=== PATIENT | female | born 1930 | race Caucasian/White ===

== ENCOUNTER 2020-11-20 12:37 | Inpatient (IN) | payer OTHER ==
[2020-11-20] MEDS ORDERED: LACTATED RINGERS SOLUTION 1000 ML INFUS.BAG IV ONE (13:34)
[2020-11-20 13:57] LABS: ACTIVATED PTT 28.1 SECONDS (25.2-36.5)
[2020-11-20 14:01] LABS: ALBUMIN 2.9 g/dl (3.4-5.0); ALK PHOS 164 U/L (45-117); ANION GAP 8 MMOL/L (8-16); BASO % 0.2 % (0-2.0); BILIRUBIN,TOTAL 0.6 mg/dl (0.2-1); CALCIUM 8.4 mg/dl (8.5-10); CHLORIDE 97 mmol/L (98-107); CO2 27 mmol/L (21-32); CREATININE 0.7 mg/dl (0.55-1.3); EOS % 0.3 % (0-4.5); GLUCOSE,RANDOM 156 mg/dl (74-106); HEMATOCRIT 32.6 % (32.4-45.2); HEMOGLOBIN 11.2 GM/dl (10.7-15.3); INR 1.12 (0.82-1.09); LYMPH % 7.7 % (8-40); MCH 33.7 pg (25.7-33.7); MCHC 34.3 g/dl (32.0-36.0); MEAN CELL VOLUME 98.2 fl (80-96); MEAN PLT VOLUME 8.2 fl (7.5-11.1); MONO % 7.6 % (3.8-10.2); NEUT % 84.2 % (42.8-82.8); PLATELET COUNT 334 10^3/uL (134-434); PROTHROMBIN TIME (PATIENT) 12.4 SEC (10.2-13.0); RBC 3.32 M/mm3 (3.60-5.2); RDW 13.6 % (11.6-15.6); SGOT/AST 23 U/L (15-37); SGPT/ALT 21 U/L (13-61); SODIUM 132 mmol/L (136-145); TOT PROT 6.3 g/dl (6.4-8.2); WHITE BLOOD COUNT 10.9 K/mm3 (4.0-10.8)
[2020-11-20] MEDS ORDERED: VANCOMYCIN 1 GM in D5W (PRE-DOCKED) 1,000 MG/250 ML IVPB ONE (14:45)
[2020-11-20] MEDS ORDERED: PIPERACILLIN/TAZOB 4.5 GM 4.5 GM in DEXTROSE 5%-WATER 100 ML IVPB ONE (14:45)
[2020-11-20] MEDS ORDERED: PIPERACILLIN/TAZOBACTAM 4.5 GM VIAL IVPB ONE (15:01)
[2020-11-20] MEDS ORDERED: VANCOMYCIN 1,000 MG VIAL (RESTRICTED TO ID ONLY) ONE (15:01)
[2020-11-21] MEDS ORDERED: DEXTROSE 5%-WATER 100 ML IVPB ONE ×2 (00:42→08:37)
[2020-11-21] MEDS ORDERED: PIPERACILLIN/TAZOBACTAM 4.5 GM VIAL IVPB ONE ×2 (00:43→08:38)
[2020-11-21] MEDS ORDERED: PIPERACILLIN/TAZOB 4.5 GM 4.5 GM in DEXTROSE 5%-WATER 100 ML IVPB SCH ×3 (00:45→08:00)
[2020-11-21] MEDS ORDERED: MECLIZINE HCL 25 MG TABLET (FP) PO PRN (01:37)
[2020-11-21] MEDS ORDERED: VANCOMYCIN 1 GM in D5W (PRE-DOCKED) 1,000 MG/250 ML IVPB SCH (04:00)
[2020-11-21 07:50] LABS: BASO % 0.1 % (0-2.0); EOS % 0.8 % (0-4.5); HEMATOCRIT 28.9 % (32.4-45.2); HEMOGLOBIN 10.4 GM/dl (10.7-15.3); LYMPH % 8.8 % (8-40); MCH 35.7 pg (25.7-33.7); MCHC 36.1 g/dl (32.0-36.0); MEAN CELL VOLUME 98.9 fl (80-96); MEAN PLT VOLUME 8.2 fl (7.5-11.1); MONO % 7.6 % (3.8-10.2); NEUT % 82.7 % (42.8-82.8); PLATELET COUNT 344 10^3/uL (134-434); RBC 2.92 M/mm3 (3.60-5.2); RDW 13.8 % (11.6-15.6); WHITE BLOOD COUNT 8.6 K/mm3 (4.0-10.8)
[2020-11-21 07:53] LABS: CALCIUM 8.2 mg/dl (8.5-10); CREATININE 0.7 mg/dl (0.55-1.3)
[2020-11-21] MEDS ORDERED: PT OWN MED DRAWER 7, Y5N ONE ×2 (09:23→21:52)
[2020-11-21] MEDS: VITAMIN B COMPLEX W/C COMBO TABLET (FP) PO SCH (09:25)
[2020-11-21] MEDS: CHOLECALCIFEROL (VIT D3) 400 UNIT (10 MCG) TABLET PO SCH ×2 (09:25→22:23)
[2020-11-21] MEDS: NADOLOL 20 MG TABLET (FP) PO SCH (09:25)
[2020-11-21] MEDS ORDERED: amLODIPine BESYLATE 10 MG TABLET (FP) PO SCH (10:00)
[2020-11-21] MEDS ORDERED: PATIENT'S OWN MEDICATION (NON-FORMULARY) (Alendronate Sodium [Fosamax] 70 MG Tablet) PO SCH (10:00)
[2020-11-21] MEDS: ALBUTEROL SO4 0.083% IH SOL 2.5 MG/3 ML VIAL.NEB. NEB SCH ×3 (13:13→19:57)
[2020-11-21] MEDS: ENOXAPARIN NA (PORCINE) 40 MG/0.4 ML DISP.SYRIN SQ SCH (13:14)
[2020-11-21] MEDS: ACETAMINOPHEN 325 MG TABLET (FP) PO PRN ×2 (13:14→21:44)
[2020-11-21] MEDS ORDERED: VANCOMYCIN 750 MG in DEXTROSE 5%-WATER - 250 ML IVPB SCH (16:00)
[2020-11-21] MEDS: ATORVASTATIN CA 10 MG TABLET (FP) PO SCH (21:44)
[2020-11-21] MEDS: DONEPEZIL HCL 10 MG TABLET (FP) PO SCH (21:44)
[2020-11-21] MEDS: MAGNESIUM OXIDE 400 MG TABLET (FP) PO SCH (21:44)
[2020-11-21] MEDS ORDERED: SODIUM CHLORIDE 500 ML IV STA (23:33)
[2020-11-22 01:24] LABS: MAGNESIUM 1.8 mg/dL (1.8-2.4)
[2020-11-22] MEDS ORDERED: VANCOMYCIN 1 GM in D5W (PRE-DOCKED) 1,000 MG/250 ML IVPB STA (05:55)
[2020-11-22] MEDS ORDERED: PIPERACILLIN/TAZOB 3.375 GM 3.375 GM in DEXTROSE 5%-WATER - 50 ML IVPB SCH (06:00)
[2020-11-22] MEDS ORDERED: PIPERACILLIN/TAZOB 3.375 GM 3.375 GM in DEXTROSE 5%-WATER - 50 ML IVPB ONE (08:15)
[2020-11-22] MEDS ORDERED: dilTIAZem HCL 50 MG/10 ML - 10 ML VIAL ONE (09:09)
[2020-11-22] MEDS ORDERED: dilTIAZem HCL 50 MG/10 ML - 10 ML VIAL IVPUSH ONE (09:15)
[2020-11-22] MEDS ORDERED: DEXTROSE 5%-WATER - 50 ML IVPB ONE ×2 (09:22→17:16)
[2020-11-22] MEDS ORDERED: PIPERACILLIN/TAZOBACTAM 3.375 GM VIAL IVPB ONE ×2 (09:22→17:16)
[2020-11-22] MEDS: NADOLOL 20 MG TABLET (FP) PO SCH (09:31)
[2020-11-22] MEDS: ALBUTEROL SO4 0.083% IH SOL 2.5 MG/3 ML VIAL.NEB. NEB SCH ×4 (09:31→20:20)
[2020-11-22] MEDS: ENOXAPARIN NA (PORCINE) 40 MG/0.4 ML DISP.SYRIN SQ SCH (09:44)
[2020-11-22] MEDS ORDERED: amLODIPine BESYLATE 10 MG TABLET (FP) PO SCH (10:00)
[2020-11-22] MEDS: CHOLECALCIFEROL (VIT D3) 400 UNIT (10 MCG) TABLET PO SCH ×2 (10:07→22:30)
[2020-11-22] MEDS: VITAMIN B COMPLEX W/C COMBO TABLET (FP) PO SCH (10:07)
[2020-11-22 10:57] LABS: HEMATOCRIT 30.9 % (32.4-45.2); HEMOGLOBIN 10.7 GM/dl (10.7-15.3); MCH 33.9 pg (25.7-33.7); MCHC 34.6 g/dl (32.0-36.0); MEAN CELL VOLUME 98.1 fl (80-96); MEAN PLT VOLUME 8.6 fl (7.5-11.1); PLATELET COUNT 355 10^3/uL (134-434); RBC 3.15 M/mm3 (3.60-5.2); RDW 13.8 % (11.6-15.6)
[2020-11-22 11:00] LABS: ADD RBC MORPHOLOGY YES
[2020-11-22 11:43] LABS: ANISOCYTOSIS 1+; PLATELET ESTIMATE ADEQUATE
[2020-11-22] MEDS: methylPREDNISolone NA SUCC 40 MG/1 ML VIAL IVPB SCH ×2 (15:00→22:30)
[2020-11-22 15:16] LABS: CHLORIDE 97 mmol/L (98-107); SODIUM 134 mmol/L (136-145)
[2020-11-22 15:18] LABS: CALCIUM 8.1 mg/dL (8.5-10.1)
[2020-11-22 15:19] LABS: ALBUMIN 2.3 g/dl (3.4-5.0); ANION GAP 9 MMOL/L (8-16); BLOOD UREA NITROGEN 11.6 mg/dL (7-18); CO2 27 mmol/L (21-32); GLUCOSE,RANDOM 95 mg/dL (74-106); MAGNESIUM 1.8 mg/dL (1.8-2.4)
[2020-11-22 15:22] LABS: CREATININE 0.6 mg/dL (0.55-1.3); SGOT/AST 19 U/L (15-37); SGPT/ALT 21 U/L (13-61)
[2020-11-22 15:23] LABS: BILIRUBIN,TOTAL 0.6 mg/dL (0.2-1); TOT PROT 5.4 g/dl (6.4-8.2)
[2020-11-22 15:25] LABS: ALK PHOS 175 U/L (45-117)
[2020-11-22] MEDS: ACETYLCYSTEINE 20% 200MG/ML 4 ML VIAL *FOR ORAL / INH USE ONLY NEB SCH ×2 (15:45→20:20)
[2020-11-22] MEDS ORDERED: POLYETHYLENE GLYCOL 3350 119 GM BTL PO SCH (17:03)
[2020-11-22] MEDS: PIPERACILLIN/TAZOB 3.375 GM 3.375 GM in DEXTROSE 5%-WATER - 50 ML IVPB SCH (17:23)
[2020-11-22] MEDS: MAGNESIUM OXIDE 400 MG TABLET (FP) PO SCH (22:30)
[2020-11-22] MEDS: SENNOSIDES 8.6MG TABLET (FP) PO SCH (22:30)
[2020-11-22] MEDS: MUPIROCIN 2% TOPICAL OINTMENT FOR DECOLONIZATION NS SCH (22:30)
[2020-11-22] MEDS: DONEPEZIL HCL 10 MG TABLET (FP) PO SCH (22:30)
[2020-11-22] MEDS: ATORVASTATIN CA 10 MG TABLET (FP) PO SCH (22:30)
[2020-11-22] MEDS: MELATONIN 5 MG TABLETS PO SCH (22:30)
[2020-11-22] MEDS: CHLORHEXIDINE GLUCONATE 4% CLEANSER FOR DECOLONIZATION TP SCH (22:30)
[2020-11-23] MEDS ORDERED: DEXTROSE 5%-WATER - 50 ML IVPB ONE ×3 (01:49→17:16)
[2020-11-23] MEDS ORDERED: PIPERACILLIN/TAZOBACTAM 3.375 GM VIAL IVPB ONE ×3 (01:49→17:16)
[2020-11-23] MEDS: PIPERACILLIN/TAZOB 3.375 GM 3.375 GM in DEXTROSE 5%-WATER - 50 ML IVPB SCH ×3 (02:36→17:58)
[2020-11-23 06:52] LABS: HEMATOCRIT 32.5 % (32.4-45.2); HEMOGLOBIN 11.4 GM/dL (10.7-15.3); LYMPH % 6.7 % (8-40); MCH 33.9 pg (25.7-33.7); MCHC 35.1 g/dl (32.0-36.0); MEAN CELL VOLUME 96.7 fl (80-96); MONO % 4.3 % (3.8-10.2); NEUT % 88.9 % (42.8-82.8); PLATELET COUNT 445 10^3/uL (134-434); RBC 3.36 M/mm3 (3.60-5.2)
[2020-11-23 06:53] LABS: BASO % 0.1 % (0-2.0)
[2020-11-23 07:12] LABS: BLOOD UREA NITROGEN 19.5 mg/dL (7-18); CALCIUM 8.7 mg/dL (8.5-10.1)
[2020-11-23 07:13] LABS: ALBUMIN 2.5 g/dl (3.4-5.0); MAGNESIUM 2.2 mg/dL (1.8-2.4)
[2020-11-23 07:15] LABS: CREATININE 0.7 mg/dL (0.55-1.3)
[2020-11-23 07:16] LABS: PHOSPHOROUS 3.6 mg/dL (2.5-4.9)
[2020-11-23 07:17] LABS: BILIRUBIN,TOTAL 0.4 mg/dL (0.2-1); TOT PROT 6.3 g/dl (6.4-8.2)
[2020-11-23] MEDS: VITAMIN B COMPLEX W/C COMBO TABLET (FP) PO SCH (09:13)
[2020-11-23] MEDS: ENOXAPARIN NA (PORCINE) 40 MG/0.4 ML DISP.SYRIN SQ SCH (09:13)
[2020-11-23] MEDS: methylPREDNISolone NA SUCC 40 MG/1 ML VIAL IVPB SCH ×2 (09:14→22:18)
[2020-11-23] MEDS: POLYETHYLENE GLYCOL (HEALTHYLAX) 3350 17 GM PACKET PO SCH (09:14)
[2020-11-23] MEDS: ACETYLCYSTEINE 20% 200MG/ML 4 ML VIAL *FOR ORAL / INH USE ONLY NEB SCH ×4 (09:40→20:41)
[2020-11-23] MEDS: ALBUTEROL SO4 0.083% IH SOL 2.5 MG/3 ML VIAL.NEB. NEB SCH ×4 (09:40→20:42)
[2020-11-23] MEDS ORDERED: PT OWN MED DRAWER 7, Y5N ONE ×2 (09:47→22:01)
[2020-11-23] MEDS: NADOLOL 20 MG TABLET (FP) PO SCH (09:48)
[2020-11-23] MEDS: CHOLECALCIFEROL (VIT D3) 400 UNIT (10 MCG) TABLET PO SCH ×2 (09:48→22:17)
[2020-11-23] MEDS: metoPROLOL SUCCINATE 25 MG TAB.SR.24H (FP) PO SCH (09:53)
[2020-11-23] MEDS: MUPIROCIN 2% TOPICAL OINTMENT FOR DECOLONIZATION NS SCH ×2 (09:56→22:18)
[2020-11-23] MEDS: METOPROLOL TARTRATE 5 MG/5 ML VIAL IVPUSH PRN (20:28)
[2020-11-23] MEDS: DONEPEZIL HCL 10 MG TABLET (FP) PO SCH (22:17)
[2020-11-23] MEDS: ACETAMINOPHEN 325 MG TABLET (FP) PO PRN (22:18)
[2020-11-23] MEDS: CHLORHEXIDINE GLUCONATE 4% CLEANSER FOR DECOLONIZATION TP SCH (22:18)
[2020-11-23] MEDS: SENNOSIDES 8.6MG TABLET (FP) PO SCH (22:18)
[2020-11-23] MEDS: ATORVASTATIN CA 10 MG TABLET (FP) PO SCH (22:18)
[2020-11-23] MEDS: MAGNESIUM OXIDE 400 MG TABLET (FP) PO SCH (22:19)
[2020-11-23] MEDS: MELATONIN 5 MG TABLETS PO SCH (22:21)
[2020-11-24] MEDS ORDERED: DEXTROSE 5%-WATER - 50 ML IVPB ONE ×4 (01:15→21:06)
[2020-11-24] MEDS ORDERED: PIPERACILLIN/TAZOBACTAM 3.375 GM VIAL IVPB ONE ×4 (01:15→21:06)
[2020-11-24] MEDS: PIPERACILLIN/TAZOB 3.375 GM 3.375 GM in DEXTROSE 5%-WATER - 50 ML IVPB SCH ×3 (01:17→17:38)
[2020-11-24 07:38] LABS: BASO % 0.1 % (0-2.0); HEMATOCRIT 31.9 % (32.4-45.2); HEMOGLOBIN 11.3 GM/dL (10.7-15.3); LYMPH % 5.6 % (8-40); MCH 34.4 pg (25.7-33.7); MCHC 35.6 g/dl (32.0-36.0); MEAN CELL VOLUME 96.5 fl (80-96); MEAN PLT VOLUME 7.9 fl (7.5-11.1); MONO % 3.2 % (3.8-10.2); NEUT % 91.1 % (42.8-82.8); PLATELET COUNT 547 10^3/uL (134-434); WHITE BLOOD COUNT 10.2 K/mm3 (4.0-10.0)
[2020-11-24 07:47] LABS: CALCIUM 8.5 mg/dL (8.5-10.1)
[2020-11-24 07:48] LABS: ALBUMIN 2.5 g/dl (3.4-5.0)
[2020-11-24 07:49] LABS: MAGNESIUM 2.1 mg/dL (1.8-2.4)
[2020-11-24 07:51] LABS: CREATININE 0.8 mg/dL (0.55-1.3); PHOSPHOROUS 3.4 mg/dL (2.5-4.9)
[2020-11-24 07:53] LABS: BILIRUBIN,TOTAL 0.4 mg/dL (0.2-1); TOT PROT 6.2 g/dl (6.4-8.2)
[2020-11-24 08:44] LABS: ANISOCYTOSIS 1+; MACROCYTOSIS 1+; PLATELET ESTIMATE INCREASED
[2020-11-24] MEDS ORDERED: PT OWN MED DRAWER 7, Y5N ONE ×2 (09:06→21:23)
[2020-11-24] MEDS: CHOLECALCIFEROL (VIT D3) 400 UNIT (10 MCG) TABLET PO SCH ×2 (09:08→21:29)
[2020-11-24] MEDS: metoPROLOL SUCCINATE 25 MG TAB.SR.24H (FP) PO SCH ×2 (09:08→21:20)
[2020-11-24] MEDS: ENOXAPARIN NA (PORCINE) 40 MG/0.4 ML DISP.SYRIN SQ SCH (09:09)
[2020-11-24] MEDS: methylPREDNISolone NA SUCC 40 MG/1 ML VIAL IVPB SCH ×2 (09:10→21:41)
[2020-11-24] MEDS: ACETYLCYSTEINE 20% 200MG/ML 4 ML VIAL *FOR ORAL / INH USE ONLY NEB SCH ×4 (09:11→20:22)
[2020-11-24] MEDS: MUPIROCIN 2% TOPICAL OINTMENT FOR DECOLONIZATION NS SCH ×2 (09:12→21:19)
[2020-11-24] MEDS: ALBUTEROL SO4 0.083% IH SOL 2.5 MG/3 ML VIAL.NEB. NEB SCH ×4 (09:12→20:23)
[2020-11-24] MEDS: VITAMIN B COMPLEX W/C COMBO TABLET (FP) PO SCH (09:13)
[2020-11-24] MEDS: METOPROLOL TARTRATE 5 MG/5 ML VIAL IVPUSH PRN (09:59)
[2020-11-24] MEDS: POLYETHYLENE GLYCOL (HEALTHYLAX) 3350 17 GM PACKET PO SCH (15:28)
[2020-11-24] MEDS: DONEPEZIL HCL 10 MG TABLET (FP) PO SCH (21:19)
[2020-11-24] MEDS: MAGNESIUM OXIDE 400 MG TABLET (FP) PO SCH (21:19)
[2020-11-24] MEDS: MELATONIN 5 MG TABLETS PO SCH (21:19)
[2020-11-24] MEDS: CHLORHEXIDINE GLUCONATE 4% CLEANSER FOR DECOLONIZATION TP SCH (21:19)
[2020-11-24] MEDS: ATORVASTATIN CA 10 MG TABLET (FP) PO SCH (21:19)
[2020-11-24] MEDS: SENNOSIDES 8.6MG TABLET (FP) PO SCH (21:19)
[2020-11-24] MEDS ORDERED: metoPROLOL SUCCINATE 25 MG TAB.SR.24H (FP) PO SCH (22:00)
[2020-11-25] VITALS: BMI 21.6
[2020-11-25] MEDS: PIPERACILLIN/TAZOB 3.375 GM 3.375 GM in DEXTROSE 5%-WATER - 50 ML IVPB SCH ×3 (01:29→18:29)
[2020-11-25] MEDS: METOPROLOL TARTRATE 5 MG/5 ML VIAL IVPUSH PRN ×2 (03:18→15:45)
[2020-11-25 06:25] LABS: BASO % 0.1 % (0-2.0); HEMATOCRIT 33.1 % (32.4-45.2); HEMOGLOBIN 11.4 GM/dL (10.7-15.3); LYMPH % 5.7 % (8-40); MCH 33.9 pg (25.7-33.7); MCHC 34.6 g/dl (32.0-36.0); MEAN CELL VOLUME 97.8 fl (80-96); MEAN PLT VOLUME 7.8 fl (7.5-11.1); MONO % 4.3 % (3.8-10.2); NEUT % 89.9 % (42.8-82.8); PLATELET COUNT 546 10^3/uL (134-434); RBC 3.38 M/mm3 (3.60-5.2); RDW 14.5 % (11.6-15.6); WHITE BLOOD COUNT 10.6 K/mm3 (4.0-10.0)
[2020-11-25 06:35] LABS: ALBUMIN 2.7 g/dl (3.4-5.0); BLOOD UREA NITROGEN 27.8 mg/dL (7-18)
[2020-11-25 06:38] LABS: CREATININE 0.9 mg/dL (0.55-1.3)
[2020-11-25 06:40] LABS: BILIRUBIN,TOTAL 0.3 mg/dL (0.2-1); TOT PROT 6.4 g/dl (6.4-8.2)
[2020-11-25 08:23] LABS: CALCIUM 8.6 mg/dL (8.5-10.1)
[2020-11-25] MEDS ORDERED: DEXTROSE 5%-WATER - 50 ML IVPB ONE ×2 (08:26→18:28)
[2020-11-25] MEDS ORDERED: PIPERACILLIN/TAZOBACTAM 3.375 GM VIAL IVPB ONE ×2 (08:26→18:28)
[2020-11-25] MEDS: ALBUTEROL SO4 0.083% IH SOL 2.5 MG/3 ML VIAL.NEB. NEB SCH ×4 (08:48→20:55)
[2020-11-25] MEDS: ACETYLCYSTEINE 20% 200MG/ML 4 ML VIAL *FOR ORAL / INH USE ONLY NEB SCH ×4 (08:48→20:55)
[2020-11-25] MEDS ORDERED: PT OWN MED DRAWER 7, Y5N ONE (09:28)
[2020-11-25] MEDS: MUPIROCIN 2% TOPICAL OINTMENT FOR DECOLONIZATION NS SCH ×2 (09:30→22:12)
[2020-11-25] MEDS: ENOXAPARIN NA (PORCINE) 40 MG/0.4 ML DISP.SYRIN SQ SCH (09:31)
[2020-11-25] MEDS: metoPROLOL SUCCINATE 25 MG TAB.SR.24H (FP) PO SCH ×2 (09:31→22:11)
[2020-11-25] MEDS: methylPREDNISolone NA SUCC 40 MG/1 ML VIAL IVPB SCH (09:31)
[2020-11-25] MEDS: CHOLECALCIFEROL (VIT D3) 400 UNIT (10 MCG) TABLET PO SCH ×2 (09:32→22:11)
[2020-11-25] MEDS: VITAMIN B COMPLEX W/C COMBO TABLET (FP) PO SCH (09:32)
[2020-11-25] MEDS: POLYETHYLENE GLYCOL (HEALTHYLAX) 3350 17 GM PACKET PO SCH (09:53)
[2020-11-25] MEDS ORDERED: ACETAMINOPHEN 325 MG TABLET (FP) PO PRN (16:40)
[2020-11-25] MEDS ORDERED: MECLIZINE HCL 25 MG TABLET (FP) PO PRN (16:40)
[2020-11-25] MEDS: MAGNESIUM OXIDE 400 MG TABLET (FP) PO SCH (22:11)
[2020-11-25] MEDS: ATORVASTATIN CA 10 MG TABLET (FP) PO SCH (22:12)
[2020-11-25] MEDS: SENNOSIDES 8.6MG TABLET (FP) PO SCH (22:12)
[2020-11-25] MEDS: DONEPEZIL HCL 10 MG TABLET (FP) PO SCH (22:12)
[2020-11-25] MEDS: CHLORHEXIDINE GLUCONATE 4% CLEANSER FOR DECOLONIZATION TP SCH (22:13)
[2020-11-25] MEDS: MELATONIN 5 MG TABLETS PO SCH (22:13)
[2020-11-26] MEDS ORDERED: DEXTROSE 5%-WATER - 50 ML IVPB ONE ×3 (01:22→17:30)
[2020-11-26] MEDS ORDERED: PIPERACILLIN/TAZOBACTAM 3.375 GM VIAL IVPB ONE ×3 (01:22→17:30)
[2020-11-26] MEDS: PIPERACILLIN/TAZOB 3.375 GM 3.375 GM in DEXTROSE 5%-WATER - 50 ML IVPB SCH ×3 (01:27→17:38)
[2020-11-26] MEDS: ACETYLCYSTEINE 20% 200MG/ML 4 ML VIAL *FOR ORAL / INH USE ONLY NEB SCH ×4 (08:45→20:39)
[2020-11-26] MEDS: ALBUTEROL SO4 0.083% IH SOL 2.5 MG/3 ML VIAL.NEB. NEB SCH ×4 (08:45→20:39)
[2020-11-26] MEDS: ENOXAPARIN NA (PORCINE) 40 MG/0.4 ML DISP.SYRIN SQ SCH (09:54)
[2020-11-26] MEDS: metoPROLOL SUCCINATE 25 MG TAB.SR.24H (FP) PO SCH (09:54)
[2020-11-26] MEDS: CHOLECALCIFEROL (VIT D3) 400 UNIT (10 MCG) TABLET PO SCH ×2 (09:54→22:24)
[2020-11-26] MEDS: VITAMIN B COMPLEX W/C COMBO TABLET (FP) PO SCH (09:54)
[2020-11-26] MEDS: methylPREDNISolone NA SUCC 40 MG/1 ML VIAL IVPB SCH (09:54)
[2020-11-26] MEDS: MUPIROCIN 2% TOPICAL OINTMENT FOR DECOLONIZATION NS SCH ×2 (09:55→22:20)
[2020-11-26] MEDS: POLYETHYLENE GLYCOL (HEALTHYLAX) 3350 17 GM PACKET PO SCH (09:55)
[2020-11-26] MEDS: CHLORHEXIDINE GLUCONATE 4% CLEANSER FOR DECOLONIZATION TP SCH (22:20)
[2020-11-26] MEDS: MAGNESIUM OXIDE 400 MG TABLET (FP) PO SCH (22:24)
[2020-11-26] MEDS: MELATONIN 5 MG TABLETS PO SCH (22:24)
[2020-11-26] MEDS: ATORVASTATIN CA 10 MG TABLET (FP) PO SCH (22:24)
[2020-11-26] MEDS: DONEPEZIL HCL 10 MG TABLET (FP) PO SCH (22:24)
[2020-11-26] MEDS: SENNOSIDES 8.6MG TABLET (FP) PO SCH (22:24)
[2020-11-26] MEDS: METOPROLOL TARTRATE 5 MG/5 ML VIAL IVPUSH PRN (23:30)
[2020-11-27] MEDS ORDERED: PIPERACILLIN/TAZOBACTAM 3.375 GM VIAL IVPB ONE ×2 (01:48→09:03)
[2020-11-27] MEDS ORDERED: DEXTROSE 5%-WATER - 50 ML IVPB ONE ×2 (01:49→09:03)
[2020-11-27] MEDS: PIPERACILLIN/TAZOB 3.375 GM 3.375 GM in DEXTROSE 5%-WATER - 50 ML IVPB SCH ×2 (01:56→09:14)
[2020-11-27] MEDS: ACETYLCYSTEINE 20% 200MG/ML 4 ML VIAL *FOR ORAL / INH USE ONLY NEB SCH ×4 (07:28→20:15)
[2020-11-27] MEDS: ALBUTEROL SO4 0.083% IH SOL 2.5 MG/3 ML VIAL.NEB. NEB SCH ×4 (07:29→20:15)
[2020-11-27 08:02] LABS: BASO % 0.2 % (0-2.0); EOS % 0.3 % (0-4.5); HEMATOCRIT 29.9 % (32.4-45.2); HEMOGLOBIN 10.4 GM/dL (10.7-15.3); LYMPH % 13.5 % (8-40); MCH 33.7 pg (25.7-33.7); MCHC 34.7 g/dl (32.0-36.0); MEAN CELL VOLUME 97.1 fl (80-96); MEAN PLT VOLUME 7.7 fl (7.5-11.1); MONO % 8.2 % (3.8-10.2); NEUT % 77.8 % (42.8-82.8); PLATELET COUNT 435 10^3/uL (134-434); RBC 3.08 M/mm3 (3.60-5.2); RDW 14.4 % (11.6-15.6); WHITE BLOOD COUNT 9.2 K/mm3 (4.0-10.0)
[2020-11-27 08:18] LABS: CALCIUM 8.2 mg/dL (8.5-10.1)
[2020-11-27 08:19] LABS: ALBUMIN 2.4 g/dl (3.4-5.0)
[2020-11-27 08:20] LABS: BLOOD UREA NITROGEN 37.3 mg/dL (7-18)
[2020-11-27 08:22] LABS: BILIRUBIN,TOTAL 0.3 mg/dL (0.2-1); CREATININE 0.8 mg/dL (0.55-1.3); PHOSPHOROUS 2.7 mg/dL (2.5-4.9)
[2020-11-27 08:23] LABS: TOT PROT 5.5 g/dl (6.4-8.2)
[2020-11-27] MEDS: CHOLECALCIFEROL (VIT D3) 400 UNIT (10 MCG) TABLET PO SCH ×2 (09:12→22:04)
[2020-11-27] MEDS: VITAMIN B COMPLEX W/C COMBO TABLET (FP) PO SCH (09:12)
[2020-11-27] MEDS: METOPROLOL TARTRATE 5 MG/5 ML VIAL IVPUSH PRN ×2 (09:13→18:05)
[2020-11-27] MEDS: methylPREDNISolone NA SUCC 40 MG/1 ML VIAL IVPB SCH (09:13)
[2020-11-27] MEDS: ENOXAPARIN NA (PORCINE) 40 MG/0.4 ML DISP.SYRIN SQ SCH (09:14)
[2020-11-27] MEDS: POLYETHYLENE GLYCOL (HEALTHYLAX) 3350 17 GM PACKET PO SCH (09:14)
[2020-11-27] MEDS: MUPIROCIN 2% TOPICAL OINTMENT FOR DECOLONIZATION NS SCH ×2 (09:14→22:02)
[2020-11-27 10:51] LABS: ANISOCYTOSIS 1+; MACROCYTOSIS 0; OVALOCYTE 1+; PLATELET ESTIMATE NORMAL; TEAR DROP CELLS 1+
[2020-11-27] MEDS ORDERED: metoPROLOL SUCCINATE 25 MG TAB.SR.24H (FP) PO ONE (13:04)
[2020-11-27] MEDS: CHLORHEXIDINE GLUCONATE 4% CLEANSER FOR DECOLONIZATION TP SCH (22:02)
[2020-11-27] MEDS: MELATONIN 5 MG TABLETS PO SCH (22:03)
[2020-11-27] MEDS: SENNOSIDES 8.6MG TABLET (FP) PO SCH (22:03)
[2020-11-27] MEDS: metoPROLOL SUCCINATE 25 MG TAB.SR.24H (FP) PO SCH (22:03)
[2020-11-27] MEDS: MAGNESIUM OXIDE 400 MG TABLET (FP) PO SCH (22:03)
[2020-11-27] MEDS: ATORVASTATIN CA 10 MG TABLET (FP) PO SCH (22:03)
[2020-11-27] MEDS: DONEPEZIL HCL 10 MG TABLET (FP) PO SCH (22:04)
[2020-11-28] MEDS: METOPROLOL TARTRATE 5 MG/5 ML VIAL IVPUSH PRN ×2 (02:20→20:25)
[2020-11-28] MEDS: ACETYLCYSTEINE 20% 200MG/ML 4 ML VIAL *FOR ORAL / INH USE ONLY NEB SCH ×4 (07:59→21:00)
[2020-11-28] MEDS: ALBUTEROL SO4 0.083% IH SOL 2.5 MG/3 ML VIAL.NEB. NEB SCH ×4 (08:00→21:00)
[2020-11-28 08:32] LABS: BASO % 0.1 % (0-2.0); EOS % 0.3 % (0-4.5); HEMATOCRIT 30.2 % (32.4-45.2); HEMOGLOBIN 10.4 GM/dL (10.7-15.3); LYMPH % 13.1 % (8-40); MCH 33.9 pg (25.7-33.7); MCHC 34.4 g/dl (32.0-36.0); MEAN CELL VOLUME 98.5 fl (80-96); MONO % 7.9 % (3.8-10.2); NEUT % 78.6 % (42.8-82.8); PLATELET COUNT 448 10^3/uL (134-434); RBC 3.07 M/mm3 (3.60-5.2); RDW 14.8 % (11.6-15.6); WHITE BLOOD COUNT 9.2 K/mm3 (4.0-10.0)
[2020-11-28 09:01] LABS: CALCIUM 8.3 mg/dL (8.5-10.1)
[2020-11-28 09:02] LABS: ALBUMIN 2.4 g/dl (3.4-5.0); BLOOD UREA NITROGEN 34.9 mg/dL (7-18); MAGNESIUM 2.2 mg/dL (1.8-2.4)
[2020-11-28 09:04] LABS: CREATININE 0.7 mg/dL (0.55-1.3); PHOSPHOROUS 3.1 mg/dL (2.5-4.9)
[2020-11-28 09:06] LABS: BILIRUBIN,TOTAL 0.3 mg/dL (0.2-1); TOT PROT 5.4 g/dl (6.4-8.2)
[2020-11-28] MEDS: metoPROLOL SUCCINATE 25 MG TAB.SR.24H (FP) PO SCH (09:26)
[2020-11-28] MEDS: CHOLECALCIFEROL (VIT D3) 400 UNIT (10 MCG) TABLET PO SCH ×2 (09:26→21:33)
[2020-11-28] MEDS: ENOXAPARIN NA (PORCINE) 40 MG/0.4 ML DISP.SYRIN SQ SCH (09:27)
[2020-11-28] MEDS: VITAMIN B COMPLEX W/C COMBO TABLET (FP) PO SCH (09:27)
[2020-11-28] MEDS: methylPREDNISolone NA SUCC 40 MG/1 ML VIAL IVPB SCH (09:27)
[2020-11-28] MEDS: POLYETHYLENE GLYCOL (HEALTHYLAX) 3350 17 GM PACKET PO SCH (09:28)
[2020-11-28] MEDS ORDERED: predniSONE 20 MG TABLET (UD) PO SCH (10:00)
[2020-11-28 11:37] LABS: ANISOCYTOSIS 1+; MACROCYTOSIS 1+; PLATELET ESTIMATE NORMAL
[2020-11-28] MEDS ORDERED: metoPROLOL SUCCINATE 25 MG TAB.SR.24H (FP) PO ONE (13:00)
[2020-11-28] MEDS: MUPIROCIN 2% TOPICAL OINTMENT FOR DECOLONIZATION NS SCH ×2 (13:09→21:33)
[2020-11-28] MEDS: DONEPEZIL HCL 10 MG TABLET (FP) PO SCH (21:32)
[2020-11-28] MEDS: MAGNESIUM OXIDE 400 MG TABLET (FP) PO SCH (21:32)
[2020-11-28] MEDS: MELATONIN 5 MG TABLETS PO SCH (21:32)
[2020-11-28] MEDS: SENNOSIDES 8.6MG TABLET (FP) PO SCH (21:33)
[2020-11-28] MEDS: ATORVASTATIN CA 10 MG TABLET (FP) PO SCH (21:33)
[2020-11-28] MEDS: CHLORHEXIDINE GLUCONATE 4% CLEANSER FOR DECOLONIZATION TP SCH (21:34)
[2020-11-28] MEDS: dilTIAZem HCL 30 MG TABLET PO SCH (23:40)
[2020-11-28] MEDS: dilTIAZem HCL 50 MG/10 ML - 10 ML VIAL IVPUSH PRN (23:41)
[2020-11-29] MEDS: dilTIAZem HCL 50 MG/10 ML - 10 ML VIAL IVPUSH PRN (04:08)
[2020-11-29] MEDS: dilTIAZem HCL 30 MG TABLET PO SCH ×2 (07:05→13:00)
[2020-11-29 07:58] LABS: BASO % 0.2 % (0-2.0); EOS % 0.3 % (0-4.5); HEMATOCRIT 30.9 % (32.4-45.2); HEMOGLOBIN 10.7 GM/dL (10.7-15.3); LYMPH % 13.4 % (8-40); MCH 33.8 pg (25.7-33.7); MCHC 34.7 g/dl (32.0-36.0); MEAN CELL VOLUME 97.4 fl (80-96); MEAN PLT VOLUME 7.8 fl (7.5-11.1); MONO % 7.2 % (3.8-10.2); NEUT % 78.9 % (42.8-82.8); PLATELET COUNT 418 10^3/uL (134-434); RBC 3.17 M/mm3 (3.60-5.2); RDW 15.1 % (11.6-15.6); WHITE BLOOD COUNT 9.3 K/mm3 (4.0-10.0)
[2020-11-29] MEDS: ALBUTEROL SO4 0.083% IH SOL 2.5 MG/3 ML VIAL.NEB. NEB SCH ×2 (08:00→11:32)
[2020-11-29] MEDS: ACETYLCYSTEINE 20% 200MG/ML 4 ML VIAL *FOR ORAL / INH USE ONLY NEB SCH ×2 (08:00→11:32)
[2020-11-29 08:21] LABS: ALBUMIN 2.5 g/dl (3.4-5.0); BLOOD UREA NITROGEN 36.3 mg/dL (7-18); CALCIUM 8.2 mg/dL (8.5-10.1); MAGNESIUM 2.1 mg/dL (1.8-2.4)
[2020-11-29 08:24] LABS: CREATININE 0.8 mg/dL (0.55-1.3); PHOSPHOROUS 3.3 mg/dL (2.5-4.9)
[2020-11-29 08:25] LABS: BILIRUBIN,TOTAL 0.3 mg/dL (0.2-1)
[2020-11-29 08:26] LABS: TOT PROT 5.5 g/dl (6.4-8.2)
[2020-11-29] MEDS: MUPIROCIN 2% TOPICAL OINTMENT FOR DECOLONIZATION NS SCH (09:18)
[2020-11-29] MEDS: VITAMIN B COMPLEX W/C COMBO TABLET (FP) PO SCH (09:22)
[2020-11-29] MEDS: POLYETHYLENE GLYCOL (HEALTHYLAX) 3350 17 GM PACKET PO SCH (09:22)
[2020-11-29] MEDS: CHOLECALCIFEROL (VIT D3) 400 UNIT (10 MCG) TABLET PO SCH (09:22)
[2020-11-29] MEDS: ENOXAPARIN NA (PORCINE) 40 MG/0.4 ML DISP.SYRIN SQ SCH (09:22)
[2020-11-29] MEDS ORDERED: predniSONE 20 MG TABLET (UD) PO SCH (10:00)
[2020-11-29 10:36] LABS: ANISOCYTOSIS 1+; MACROCYTOSIS 0; PLATELET ESTIMATE INCREASED
[2020-11-29 13:33] VITALS: BP 108/45; PULSE 120; TEMP 98
== END 2020-11-29 13:55 | DRG 193 ==
LOC: FER 12:37 → FM/S 15:07 → UNDOADMIN 15:07 → JICU 11-22 11:18 → J4W 11-25 16:46
PROVIDERS: ADMIT Internal Medicine
DX: J18.9 Pneumonia, unspecified organism (principal); J96.01 Acute respiratory failure with hypoxia; I50.32 Chronic diastolic (congestive) heart failure; J44.1 Chronic obstructive pulmonary disease with (acute) exacerbation; J98.11 Atelectasis; N39.0 Urinary tract infection, site not specified; T17.890A Other foreign object in other parts of respiratory tract causing asphyxiation, initial encounter; E78.00 Pure hypercholesterolemia, unspecified; F03.90 Unspecified dementia, unspecified severity, without behavioral disturbance, psychotic disturbance, mood disturbance, and anxiety; R41.82 Altered mental status, unspecified; I11.0 Hypertensive heart disease with heart failure; R29.6 Repeated falls; I48.91 Unspecified atrial fibrillation; I95.9 Hypotension, unspecified
CPT/HCPCS: 36415; 70450-TC; 71045-TC-FY; 71250-TC; 80048; 80053; 81003; 82550; 82553; 83036; 83605; 83735; 84100; 84436; 84443; 84484; 85025; 85610; 85730; 86850; 86900; 86901; 87040; 87086; 93005; 93010; 93306-TC; 94010; 94640; 97116-GP; 97162-GP; 99285-25; C9803; U0003; U0005